=== PATIENT | male | born 1945 | race Caucasian/White ===

== ENCOUNTER → 2019-10-22 | Outpatient (CLI) | payer MEDICARE ==
[2019-10-22 08:56] LABS: Basophils % (A) 0 %; Eosinophils # (A) 0.1 k/uL (0-0.7); Eosinophils % (A) 0 %; HCT 35.4 % (39.0-53.0); HGB 11.5 gm/dL (13.0-17.5); Lymphocytes # (A) 1.8 k/uL (1.0-4.8); Lymphocytes % (A) 14 %; MCHC 32.5 g/dL (31.0-37.0); MCV 95.2 fL (80.0-100.0); Mean Platelet Volume 7.3; Monocytes # (A) 0.5 k/uL (0-1.0); Monocytes % (A) 4 %; Neutrophils # (A) 9.8 k/uL (1.3-7.7); Neutrophils % (A) 80 %; Platelet Count 364 k/uL (150-450); RBC 3.72 m/uL (4.30-5.90); RDW 13.6 % (11.5-15.5); WBC 12.2 k/uL (3.8-10.6)
[2019-10-22 09:02] LABS: Appearance,Urine Cloudy (Clear); Bacteria,Urine Rare /hpf; Bilirubin,Urine Negative (Negative); Blood,Urine Moderate (Negative); Color,Urine Yellow; Glucose,Urine (UA) Negative (Negative); Granular Casts,Urine 35 /lpf (0); Hyaline Casts,Urine 1 /lpf (0-2); Ketones,Urine Negative (Negative); Leukocyte Esterase,Urine Negative (Negative); Mucus,Urine Occasional /hpf; Nitrite,Urine Negative (Negative); Protein,Urine 4+ (Negative); RBC,Urine 5 /hpf (0-5); Specific Gravity,Urine 1.026 (1.001-1.035); Squamous Epithelial Cell,Urine 1 /hpf (0-4); Urobilinogen,Urine <2.0 mg/dL (<2.0); WBC,Urine 5 /hpf (0-5)
[2019-10-22 17:24] LABS: African American GFR (CKD) 56.2 (60.0-200.0); Albumin 2.7 g/dL (3.80-4.90); Albumin/Globulin Ratio 1.69 (1.60-3.17); Anion Gap 4.1 mmol/L (4.00-12.00); BUN/Creat Ratio 39.29 Ratio (12.00-20.00); Carbon Dioxide 30.9 mmol/L (21.6-31.8); Chol/HDL Ratio 2.51; Globulin 1.6 g/dL (1.6-3.3); LDL Cholesterol,Calculated 100.4 mg/dL (0.0-131.0); Non-African American GFR(CKD) 48.5 (60.0-200.0); Phosphorus 4.1 mg/dL (2.4-5.1); Potassium 4.1 mmol/L (3.5-5.5); Total Bilirubin 0.4 mg/dL (0.3-1.2); Total Protein 4.3 g/dL (6.2-8.2); VLDL Calculation 21.6 mg/dL (5.00-40.00)
[2019-10-22 19:19] LABS: Creatinine,Urine Random 186.8 mg/dL
== END | disposition home or self-care (01) ==
LOC: LABWHC1 08:14
PROVIDERS: ATTEND Internal Medicine Nephrology
DX: N04.9 Nephrotic syndrome with unspecified morphologic changes (principal); N18.2 Chronic kidney disease, stage 2 (mild)
CPT/HCPCS: 36415; 80053; 80061; 81001; 82306; 82570; 83970; 84100; 84156; 85025

== ENCOUNTER → 2019-11-10 | Outpatient (CLI) | payer MEDICARE ==
[2019-11-10 17:08] LABS: African American GFR (CKD) 32.5 (60.0-200.0); Anion Gap 7.3 mmol/L (4.00-12.00); Calcium 7.2 mg/dL (8.7-10.3); Carbon Dioxide 28.7 mmol/L (21.6-31.8); Non-African American GFR(CKD) 28.1 (60.0-200.0); Potassium 4.5 mmol/L (3.5-5.5)
== END | disposition home or self-care (01) ==
LOC: LABWHC1 09:01
PROVIDERS: ATTEND Nurse Practitioner Adult Health
DX: N05.1 Unspecified nephritic syndrome with focal and segmental glomerular lesions (principal)
CPT/HCPCS: 36415; 80048

== ENCOUNTER → 2020-01-11 | Outpatient (CLI) | payer MEDICARE ==
[2020-01-11 10:31] LABS: HCT 42.9 % (39.0-53.0); HGB 13.5 gm/dL (13.0-17.5); Hypochromasia Slight; MCH 30.3 pg (25.0-35.0); MCHC 31.6 g/dL (31.0-37.0); Platelet Count 401 k/uL (150-450); RBC 4.47 m/uL (4.30-5.90); WBC 19.4 k/uL (3.8-10.6)
[2020-01-11 11:13] LABS: Appearance,Urine Clear (Clear); Bilirubin,Urine Negative (Negative); Blood,Urine Negative (Negative); Color,Urine Yellow; Glucose,Urine (UA) Negative (Negative); Hyaline Casts,Urine 1 /lpf (0-2); Ketones,Urine Negative (Negative); Leukocyte Esterase,Urine Negative (Negative); Mucus,Urine Rare /hpf; Nitrite,Urine Negative (Negative); Protein,Urine 1+ (Negative); Specific Gravity,Urine 1.023 (1.001-1.035); WBC,Urine 1 /hpf (0-5)
[2020-01-11 11:30] LABS: Protein/Creatinine Ratio,Urine 0.48
[2020-01-11 16:17] LABS: African American GFR (CKD) 75.2 (60.0-200.0); Albumin 3.9 g/dL (3.80-4.90); Albumin/Globulin Ratio 1.77 (1.60-3.17); Anion Gap 7.4 mmol/L (4.00-12.00); BUN/Creat Ratio 16.36 Ratio (12.00-20.00); Calcium 9.6 mg/dL (8.7-10.3); Carbon Dioxide 31.6 mmol/L (21.6-31.8); Globulin 2.2 g/dL (1.6-3.3); Non-African American GFR(CKD) 64.9 (60.0-200.0); Potassium 4.6 mmol/L (3.5-5.5); Total Bilirubin 0.3 mg/dL (0.3-1.2); Total Protein 6.1 g/dL (6.2-8.2)
== END | disposition home or self-care (01) ==
LOC: LABWHC1 09:28
PROVIDERS: ATTEND Internal Medicine Nephrology
DX: I12.9 Hypertensive chronic kidney disease with stage 1 through stage 4 chronic kidney disease, or unspecified chronic kidney disease (principal); E55.9 Vitamin D deficiency, unspecified; N18.2 Chronic kidney disease, stage 2 (mild)
CPT/HCPCS: 36415; 80053; 81001; 82570; 83970; 84156; 85027

== ENCOUNTER → 2020-03-05 | Outpatient (CLI) | payer MEDICARE ==
[2020-03-05 10:27] LABS: Appearance,Urine Clear (Clear); Bilirubin,Urine Negative (Negative); Blood,Urine Negative (Negative); Color,Urine Yellow; Glucose,Urine (UA) Negative (Negative); Ketones,Urine Negative (Negative); Leukocyte Esterase,Urine Negative (Negative); Nitrite,Urine Negative (Negative); PH, Urine 6.5 (5.0-8.0); Protein,Urine Trace (Negative); Specific Gravity,Urine 1.014 (1.001-1.035); Urobilinogen,Urine <2.0 mg/dL (<2.0)
[2020-03-05 16:31] LABS: African American GFR (CKD) 67.7 (60.0-200.0); Albumin 3.6 g/dL (3.80-4.90); Albumin/Globulin Ratio 1.71 (1.60-3.17); Anion Gap 9.2 mmol/L (4.00-12.00); BUN/Creat Ratio 17.5 Ratio (12.00-20.00); Carbon Dioxide 26.8 mmol/L (21.6-31.8); Chol/HDL Ratio 2.42; Globulin 2.1 g/dL (1.6-3.3); LDL Cholesterol,Calculated 70.2 mg/dL (0.0-131.0); Non-African American GFR(CKD) 58.4 (60.0-200.0); Potassium 4.1 mmol/L (3.5-5.5); Total Bilirubin 0.3 mg/dL (0.2-1.2); Total Protein 5.7 g/dL (6.2-8.2); VLDL Calculation 34.8 mg/dL (5.00-40.00)
[2020-03-05 17:36] LABS: Total Protein,Urine Random 21.9 mg/dL (0.0-13.5)
== END | disposition home or self-care (01) ==
LOC: LABWHC1 09:25
PROVIDERS: ATTEND Internal Medicine Nephrology
DX: N04.9 Nephrotic syndrome with unspecified morphologic changes (principal)
CPT/HCPCS: 36415; 80053; 80061; 81003; 82570; 83970; 84156

== ENCOUNTER → 2020-04-11 | Outpatient (CLI) | payer MEDICARE ==
[2020-04-11 10:40] LABS: Appearance,Urine Clear (Clear); Bacteria,Urine Rare /hpf; Bilirubin,Urine Negative (Negative); Blood,Urine Negative (Negative); Calcium Oxalate Crystals,Urine Occasional /hpf; Color,Urine Yellow; Glucose,Urine (UA) Negative (Negative); Ketones,Urine Negative (Negative); Leukocyte Esterase,Urine Negative (Negative); Mucus,Urine Occasional /hpf; Nitrite,Urine Negative (Negative); Protein,Urine 1+ (Negative); RBC,Urine 8 /hpf (0-5); Specific Gravity,Urine 1.021 (1.001-1.035); Squamous Epithelial Cell,Urine <1 /hpf (0-4); Urobilinogen,Urine <2.0 mg/dL (<2.0); WBC,Urine 1 /hpf (0-5)
[2020-04-11 10:50] LABS: Protein/Creatinine Ratio,Urine 0.217
[2020-04-11 16:31] LABS: African American GFR (CKD) 83.8 (60.0-200.0); Albumin 3.6 g/dL (3.80-4.90); Albumin/Globulin Ratio 1.8 (1.60-3.17); Calcium 9.1 mg/dL (8.7-10.3); Chol/HDL Ratio 2.53; LDL Cholesterol,Calculated 75.4 mg/dL (0.0-131.0); Non-African American GFR(CKD) 72.3 (60.0-200.0); Potassium 3.7 mmol/L (3.5-5.5); Total Bilirubin 0.5 mg/dL (0.3-1.2); Total Protein 5.6 g/dL (6.2-8.2); VLDL Calculation 19.6 mg/dL (5.00-40.00)
== END | disposition home or self-care (01) ==
LOC: LABWHC1 08:37
PROVIDERS: ATTEND Internal Medicine Nephrology
DX: N04.9 Nephrotic syndrome with unspecified morphologic changes (principal); N05.1 Unspecified nephritic syndrome with focal and segmental glomerular lesions
CPT/HCPCS: 36415; 80053; 80061; 81001; 82570; 83970; 84156

== ENCOUNTER → 2020-06-29 | Outpatient (CLI) | payer MEDICARE ==
[2020-06-29 10:57] LABS: Appearance,Urine Clear (Clear); Bilirubin,Urine Negative (Negative); Blood,Urine Negative (Negative); Color,Urine Yellow; Glucose,Urine (UA) Negative (Negative); Ketones,Urine Negative (Negative); Leukocyte Esterase,Urine Negative (Negative); Nitrite,Urine Negative (Negative); PH, Urine 6.5 (5.0-8.0); Protein,Urine Trace (Negative); Specific Gravity,Urine 1.021 (1.001-1.035); Urobilinogen,Urine <2.0 mg/dL (<2.0)
[2020-06-29 11:06] LABS: Protein/Creatinine Ratio,Urine 0.074
[2020-06-29 17:30] LABS: African American GFR (CKD) 74.7 (60.0-200.0); Albumin 4.1 g/dL (3.80-4.90); Albumin/Globulin Ratio 1.95 (1.60-3.17); Anion Gap 9.1 mmol/L (4.00-12.00); BUN/Creat Ratio 19.09 Ratio (12.00-20.00); Calcium 9.5 mg/dL (8.7-10.3); Carbon Dioxide 25.9 mmol/L (21.6-31.8); Chol/HDL Ratio 2.62; Globulin 2.1 g/dL (1.6-3.3); LDL Cholesterol,Calculated 73.8 mg/dL (0.0-131.0); Non-African American GFR(CKD) 64.4 (60.0-200.0); Potassium 4.3 mmol/L (3.5-5.5); Total Bilirubin 0.5 mg/dL (0.3-1.2); Total Protein 6.2 g/dL (6.2-8.2); VLDL Calculation 28.2 mg/dL (5.00-40.00)
== END | disposition home or self-care (01) ==
LOC: LABWHC1 09:51
PROVIDERS: ATTEND Internal Medicine Nephrology
DX: N04.9 Nephrotic syndrome with unspecified morphologic changes (principal); N05.1 Unspecified nephritic syndrome with focal and segmental glomerular lesions
CPT/HCPCS: 36415; 80053; 80061; 81003; 82570; 83970; 84156

== ENCOUNTER → 2020-08-01 | Outpatient (CLI) | payer MEDICARE ==
--- NOTE | 2020-08-01 13:00 | CT ---
EXAMINATION TYPE: CT angio abd aorta w/Runoff DATE OF EXAM: 08/01/2020 COMPARISON: HISTORY: Aortic stenosis CT DLP: 957.2 mGycm EXAMINATION TYPE: CT angio abd aorta w/Runoff DATE OF EXAM: 08/01/2020 COMPARISON: None HISTORY: Aortic stenosis CT DLP: 957.2 mGycm CONTRAST: CTA thoracic and abdominal aorta with 3-D reconstruction is performed and without and with IV Contras t, patient injected with 125 ml mL of Isovue 370. Contrast CTA of the abdominal aorta with runoff of the lower extremity arterial system was performed from the lung bases through the ankles and feet. 3-D reconstruction imaging obtained at a separate wo rkstation. ABDOMINAL AORTA: Diffuse atheromatous change of the abdominal aorta with ectasia noted however there is no evidence for aneurysm. Mild mural thrombus. Iliac vessels: Common iliac arteries are patent bilaterally. Diffuse calcific plaque noted bilaterall y without evidence for hemodynamically significant stenosis. Aneurysm of the distal component right c ommon iliac artery measuring 3 cm AP dimension. The left common iliac artery measures up to 2.1 cm. I nternal and external iliac branches are patent. Femoral arteries: Calcific atheromatous plaque seen scattered throughout bilaterally. There is no lisset dence for hemodynamically significant stenosis or stenosis greater than 50%. Ectasia of the distal pr ofunda femoris measuring 9 mm. Popliteal arteries: Popliteal arteries are patent bilaterally with only mild plaque formation noted. Below the knee arteries: Trifurcation is patent bilaterally. Calcific disease noted bilaterally. Righ t anterior tibial artery is noted to the ankle while the left anterior tibial artery is noted up to t he mid calf. There is limited visualization of the bilateral peroneal and posterior tibial arteries. Limited runoff of the ankle vessels. LIVER/GB- No significant abnormality is seen. PANCREAS- No significant abnormality is seen. SPLEEN- No significant abnormality is seen. ADRENALS- No significant abnormality is seen. KIDNEYS/BLADDER- No significant abnormality is seen. Large renal cyst right kidney. BOWEL- No Significant abnormality GENITAL ORGANS: No gross abnormality seen. LYMPH NODES- No greater than 1cm abdominal or pelvic lymph nodes are appreciated. OSSEOUS STRUCTURES- No significant abnormality is seen. OTHER- No significant abnormality is seen. IMPRESSION- 1. 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 2. Calcific atheromatous change throughout without hemodynamically significant stenosis of the common iliac arteries, external and internal iliac arteries, femoral arteries or popliteal arteries. There is limited visualization of the peroneal and posterior tibial arteries bilaterally left greater than right as well as of the anterior tibial arteries.
== END | disposition home or self-care (01) ==
LOC: RADCTMAIN 10:31
PROVIDERS: ATTEND Internal Medicine Interventional Cardiology
DX: I72.3 Aneurysm of iliac artery (principal); Q25.1 Coarctation of aorta; I70.0 Atherosclerosis of aorta; I77.89 Other specified disorders of arteries and arterioles; I70.8 Atherosclerosis of other arteries; I70.203 Unspecified atherosclerosis of native arteries of extremities, bilateral legs
CPT/HCPCS: 82565; 84520; 75635; 36415; Q9967

== ENCOUNTER → 2020-08-15 | Outpatient (CLI) | payer MEDICARE ==
[2020-08-15 09:31] LABS: HCT 43.7 % (39.0-53.0); HGB 14.1 gm/dL (13.0-17.5); MCH 31.3 pg (25.0-35.0); MCHC 32.3 g/dL (31.0-37.0); MCV 96.7 fL (80.0-100.0); Mean Platelet Volume 7.1; Platelet Count 279 k/uL (150-450); RBC 4.52 m/uL (4.30-5.90); WBC 10.1 k/uL (3.8-10.6)
[2020-08-15 09:37] LABS: Potassium 4.4 mmol/L (3.5-5.1)
== END | disposition home or self-care (01) ==
LOC: LABPAT 08:49
PROVIDERS: ATTEND Internal Medicine Interventional Cardiology
DX: Z01.818 Encounter for other preprocedural examination (principal); R06.02 Shortness of breath
CPT/HCPCS: 80051; 82565; 84520; 85027

== ENCOUNTER 2020-08-23 09:13 | Day surgery (SDC) | payer MEDICARE ==
[2020-08-22 12:01] VITALS: BMI 24.3
[~2020-08-23 09:13] MED LIST: ALPRAZolam 0.25 MG TAB PO PRN; ALPRAZolam 0.5 MG TAB PO PRN; ASPIRIN 325 MG TAB PO STA; NITROGLYCERIN SL TABS 0.4 MG TAB SUBLINGUAL PRN; SODIUM CHLORIDE 0.9% 1,000 ML in EMPTY BAG 1 BAG IV ONE
[2020-08-23] MEDS ORDERED: SODIUM CHLORIDE 0.9% 1,000 ML IV ONE (09:55)
[2020-08-23 09:57] VITALS: RESP 16; TEMP 97.6
[2020-08-23] MEDS ORDERED: VERAPAMIL 2.5 MG/ML 2 ML AMP ONE (10:43)
[2020-08-23] MEDS ORDERED: LIDOCAINE 1% INJ 10MG/ML (20 ML MDV) ONE (10:44)
[2020-08-23] MEDS ORDERED: HEPARIN SODIUM 1,000 UN/ML (10ML VL) ONE (11:04)
[2020-08-23] MEDS: MIDAZOLAM 2 MG/2 ML VIAL IV ONE ×2 (11:15→11:18)
[2020-08-23] MEDS ORDERED: LIDOCAINE 1% INJ 10MG/ML (20 ML MDV) SQ ONE (11:18)
[2020-08-23] MEDS: VERAPAMIL SYRINGE (5 MG/10 ML) INTRAARTER ONE ×2 (11:22→11:35)
[2020-08-23] MEDS ORDERED: IOPAMIDOL-370 100ML BTL INJ ONE (11:36)
[2020-08-23] MEDS ORDERED: SODIUM CHLORIDE 0.9% 1,000 ML IV SCH (12:00)
--- NOTE | 2020-08-23 14:14 | CC ---
CARDIAC CATHETERIZATION REPORT DATE OF SERVICE: 08/23/2020 PROCEDURE: Left heart catheterization and coronary angiography. PERFORMED BY: Dr. Brock Coleman. Moderate conscious sedation time was 24 minutes. Patient was administered Versed. Oxygen saturation, hemodynamics and EKG were monitored closely. CLINICAL INFORMATION: Mr. Anthony Samayoa is a 75-year-old gentleman with a history of hypertension, hyperlipidemia, peripheral arterial disease, smoking and COPD. Because of an abnormal stress test with inferior wall reversible defect. He was advised cardiac catheterization after due discussion regarding risks, benefits, and options. He also has a peripheral artery disease with iliac aneurysm as well. PROCEDURE NOTE: Under local anesthesia and strict aseptic precautions, a 6-Uzbek introducer was placed in the right radial artery. Using a JL3.5 and JR4 catheters, I performed coronary angiography and using the same right catheter checked LV pressures but did not perform LV gram. The sheath was taken out and TR band applied as per protocol. Patient tolerated the procedure well without complications. CARDIAC CATHETERIZATION FINDINGS: Left ventricular end-diastolic pressure was about 9-10 mmHg without any gradient across the aortic valve. CORONARY ANGIOGRAPHY FINDINGS: RIGHT CORONARY ARTERY: Dominant vessel, bifurcates very early and gives off a PLV branch that bifurcates in the proximal 1/3 of the vessel and then the vessel continues distally and gives off a PDA branch. The entire vessel has mild diffuse disease throughout, especially the distal branches have diffuse disease but no significant critical focal stenosis is noted. Dominant RCA with a high bifurcation. No significant disease but diffuse narrowing of both branches are noted. LEFT MAIN CORONARY ARTERY: This is a long vessel, has moderate calcification. The distal left main has stenosis of about 35% and it bifurcates into LAD and circumflex. The plaque is best seen in the BIRD caudal projection and in some views it is between 35% and 40% but not surgical. It bifurcates into LAD and circumflex. LEFT ANTERIOR DESCENDING CORONARY ARTERY: Good caliber vessel, extends along the anterior wall proximally, has about a 40% narrowing and then it gives off 2 diagonal branches and runs all the way to the apex. The entire vessel has minor diffuse irregularities of 35%-40%, but proximal 40% stenosis is best seen in the BIRD caudal projection. There is moderate calcification in the proximal 1/3 of the LAD. This LAD branches in terms of septal and diagonal branches have minor diffuse irregularities. LEFT POSTERIOR CIRCUMFLEX CORONARY ARTERY: This is a good caliber vessel, gives off a high obtuse marginal that is large, runs laterally, bifurcates into 2 branches and then circumflex continues in the AV groove has minor irregularities. No significant disease in the nondominant circumflex. FINAL IMPRESSION: This patient has normal filling pressures. No gradient across the aortic valve. He has a right dominant system with diffuse disease in branches in the distal branch of RCA. Left main has a 35% to 40% narrowing with a 40% mid/proximal LAD disease and no significant disease in the circumflex system. Normal filling pressures. No gradient across the aortic valve. RECOMMENDATION: For now, I am recommending medical therapy with the understanding that the left main lesion should be a should be watched aggressively. Stress test did not reveal ischemia in the LAD distribution. I will recommend aggressive lipid-lowering therapy, smoking cessation and optimize medical therapy. He also has an iliac aneurysm that will be evaluated by Dr. Reddy. Discussed my thoughts in detail with the patient as well as his . MMERMIAS / SIMEONN: [id number] /
[2020-08-23 17:34] VITALS: BP 148/82; PULSE 66
== END 2020-08-23 17:34 | disposition home or self-care (01) ==
LOC: CATHCVL 09:13
PROVIDERS: ATTEND Internal Medicine Interventional Cardiology
DX: I25.110 Atherosclerotic heart disease of native coronary artery with unstable angina pectoris (principal); I25.84 Coronary atherosclerosis due to calcified coronary lesion; I10 Essential (primary) hypertension; E78.5 Hyperlipidemia, unspecified; I49.5 Sick sinus syndrome; I12.9 Hypertensive chronic kidney disease with stage 1 through stage 4 chronic kidney disease, or unspecified chronic kidney disease; I72.3 Aneurysm of iliac artery; I70.209 Unspecified atherosclerosis of native arteries of extremities, unspecified extremity; Z82.49 Family history of ischemic heart disease and other diseases of the circulatory system; F17.290 Nicotine dependence, other tobacco product, uncomplicated; E78.00 Pure hypercholesterolemia, unspecified; J44.9 Chronic obstructive pulmonary disease, unspecified; N18.30 Chronic kidney disease, stage 3 unspecified; Z79.82 Long term (current) use of aspirin; Z79.52 Long term (current) use of systemic steroids; Z79.899 Other long term (current) drug therapy
CPT/HCPCS: 93458; C1769; C1894; J2250; J2001; J1644; Q9967

== ENCOUNTER → 2020-09-04 | Outpatient (CLI) | payer MEDICARE ==
[2020-09-04 11:27] LABS: Creatinine,Urine Random 56.7 mg/dL; Protein/Creatinine Ratio,Urine 0.194
[2020-09-04 14:53] LABS: African American GFR (CKD) 74.7 (60.0-200.0); Albumin 4.3 g/dL (3.80-4.90); Albumin/Globulin Ratio 1.95 (1.60-3.17); Anion Gap 5.4 mmol/L (4.00-12.00); BUN/Creat Ratio 15.45 Ratio (12.00-20.00); Calcium 9.7 mg/dL (8.7-10.3); Carbon Dioxide 26.6 mmol/L (21.6-31.8); Globulin 2.2 g/dL (1.6-3.3); Non-African American GFR(CKD) 64.4 (60.0-200.0); Potassium 4.9 mmol/L (3.5-5.5); Total Bilirubin 0.4 mg/dL (0.3-1.2); Total Protein 6.5 g/dL (6.2-8.2)
[2020-09-04 15:01] LABS: Prostate Specific Antigen 1.9 ng/mL (0.0-6.5)
== END | disposition home or self-care (01) ==
LOC: LABWHC1 09:05
PROVIDERS: ATTEND Internal Medicine Nephrology
DX: N05.1 Unspecified nephritic syndrome with focal and segmental glomerular lesions (principal); N40.0 Benign prostatic hyperplasia without lower urinary tract symptoms
CPT/HCPCS: 36415; 80053; 82570; 84153; 84156

== ENCOUNTER → 2020-10-24 | Outpatient (CLI) | payer MEDICARE ==
[2020-10-24 11:26] LABS: Creatinine,Urine Random 89.1 mg/dL; Protein/Creatinine Ratio,Urine 0.112
[2020-10-24 16:45] LABS: African American GFR (CKD) 67.2 (60.0-200.0); Albumin 4.1 g/dL (3.80-4.90); Albumin/Globulin Ratio 1.95 (1.60-3.17); Anion Gap 6.7 mmol/L (4.00-12.00); BUN/Creat Ratio 12.5 Ratio (12.00-20.00); Calcium 9.4 mg/dL (8.7-10.3); Carbon Dioxide 25.3 mmol/L (21.6-31.8); Globulin 2.1 g/dL (1.6-3.3); Potassium 4.6 mmol/L (3.5-5.5); Total Bilirubin 0.4 mg/dL (0.2-1.2); Total Protein 6.2 g/dL (6.2-8.2)
== END | disposition home or self-care (01) ==
LOC: LABWHC1 09:59
PROVIDERS: ATTEND Internal Medicine Nephrology
DX: N05.1 Unspecified nephritic syndrome with focal and segmental glomerular lesions (principal)
CPT/HCPCS: 36415; 80053; 82570; 84156

== ENCOUNTER → 2020-11-27 | Outpatient (CLI) | payer MEDICARE ==
[2020-11-27 11:35] LABS: Appearance,Urine Clear (Clear); Bilirubin,Urine Negative (Negative); Blood,Urine Negative (Negative); Color,Urine Yellow; Glucose,Urine (UA) Negative (Negative); Ketones,Urine Negative (Negative); Leukocyte Esterase,Urine Negative (Negative); Nitrite,Urine Negative (Negative); PH, Urine 5.5 (5.0-8.0); Protein,Urine Negative (Negative); Urobilinogen,Urine <2.0 mg/dL (<2.0)
[2020-11-27 11:50] LABS: Protein/Creatinine Ratio,Urine 0.061
[2020-11-27 15:45] LABS: African American GFR (CKD) 67.2 (60.0-200.0); Albumin 4.4 g/dL (3.80-4.90); Albumin/Globulin Ratio 2.1 (1.60-3.17); Anion Gap 2.7 mmol/L (4.00-12.00); BUN/Creat Ratio 15.83 Ratio (12.00-20.00); Calcium 9.4 mg/dL (8.7-10.3); Carbon Dioxide 28.3 mmol/L (21.6-31.8); Globulin 2.1 g/dL (1.6-3.3); Potassium 5.2 mmol/L (3.5-5.5); Total Bilirubin 0.3 mg/dL (0.3-1.2); Total Protein 6.5 g/dL (6.2-8.2)
== END | disposition home or self-care (01) ==
LOC: LABWHC1 09:41
PROVIDERS: ATTEND Internal Medicine Nephrology
DX: N04.9 Nephrotic syndrome with unspecified morphologic changes (principal)
CPT/HCPCS: 36415; 80053; 81003; 82570; 84156

== ENCOUNTER → 2021-01-14 | Outpatient (CLI) | payer MEDICARE ==
[2021-01-14 10:26] LABS: Appearance,Urine Clear (Clear); Bilirubin,Urine Negative (Negative); Blood,Urine Negative (Negative); Color,Urine Yellow; Glucose,Urine (UA) Negative (Negative); Ketones,Urine Negative (Negative); Leukocyte Esterase,Urine Negative (Negative); Nitrite,Urine Negative (Negative); PH, Urine 5.5 (5.0-8.0); Protein,Urine Negative (Negative); Specific Gravity,Urine 1.021 (1.001-1.035); Urobilinogen,Urine <2.0 mg/dL (<2.0)
[2021-01-14 10:42] LABS: Creatinine,Urine Random 196.4 mg/dL; Protein/Creatinine Ratio,Urine 0.036
[2021-01-14 16:29] LABS: Basophils # (A) 0.07 X 10*3/uL (0.00-0.10); Basophils % (A) 0.8 %; Eosinophils # (A) 0.42 X 10*3/uL (0.04-0.35); Eosinophils % (A) 4.7 %; HGB 13.3 g/dL (13.0-17.0); Lymphocytes # (A) 2.46 X 10*3/uL (0.90-5.00); Lymphocytes % (A) 27.8 %; MCH 29.8 pg (27.0-32.0); MCHC 32.4 g/dL (32.0-37.0); MCV 91.7 fL (80.0-97.0); Mean Platelet Volume 10.2 fL (9.5-12.2); Monocytes # (A) 0.66 X 10*3/uL (0.20-1.00); Monocytes % (A) 7.5 %; Neutrophils % (A) 58.7 %; Platelet Count 318 X 10*3/uL (140-440); RBC 4.47 X 10*6/uL (4.40-5.60); RDW 14.2 % (11.5-14.5); WBC 8.85 X 10*3/uL (4.50-10.00)
[2021-01-14 17:38] LABS: ALT <8 U/L (10-49); AST 16 U/L (14-35); African American GFR (CKD) 74.7 (60.0-200.0); Albumin/Globulin Ratio 1.58 (1.60-3.17); Alkaline Phosphatase 103 U/L (41-126); BUN/Creat Ratio 14.55 Ratio (12.00-20.00); Chloride 105 mmol/L (96-109); Chol/HDL Ratio 3.09; Cholesterol 99 mg/dL (0-200); Globulin 2.6 g/dL (1.6-3.3); Glucose 99 mg/dL (70-110); LDL Cholesterol,Calculated 43.4 mg/dL (0.0-131.0); Non-African American GFR(CKD) 64.4 (60.0-200.0); Potassium 4.8 mmol/L (3.5-5.5); Prostate Specific Antigen 1.2 ng/mL (0.0-6.5); Sodium 136 mmol/L (135-145); Total Bilirubin 0.4 mg/dL (0.3-1.2); Total Protein 6.7 g/dL (6.2-8.2)
== END | disposition home or self-care (01) ==
LOC: LABWHC1 09:16
PROVIDERS: ATTEND Internal Medicine Nephrology
DX: N40.0 Benign prostatic hyperplasia without lower urinary tract symptoms (principal); E78.5 Hyperlipidemia, unspecified; N18.2 Chronic kidney disease, stage 2 (mild)
CPT/HCPCS: 36415; 80053; 80061; 81003; 82570; 84153; 84156; 85025

== ENCOUNTER → 2021-02-27 | Outpatient (CLI) | payer MEDICARE ==
[2021-02-27 10:00] LABS: Creatinine,Urine Random 195.1 mg/dL; Protein/Creatinine Ratio,Urine 0.036
[2021-02-28 04:02] LABS: African American GFR (CKD) 74.7 (60.0-200.0); Anion Gap 7.3 mmol/L (4.00-12.00); BUN/Creat Ratio 16.36 Ratio (12.00-20.00); Calcium 9.2 mg/dL (8.7-10.3); Carbon Dioxide 22.7 mmol/L (21.6-31.8); Non-African American GFR(CKD) 64.4 (60.0-200.0); Potassium 4.8 mmol/L (3.5-5.5)
== END | disposition home or self-care (01) ==
LOC: LABWHC1 08:55
PROVIDERS: ATTEND Nurse Practitioner Adult Health
DX: N18.2 Chronic kidney disease, stage 2 (mild) (principal)
CPT/HCPCS: 36415; 80048; 82570; 84156

== ENCOUNTER → 2021-05-08 | Outpatient (CLI) | payer MEDICARE ==
[2021-05-08 12:31] LABS: Creatinine,Urine Random 192.3 mg/dL; Protein/Creatinine Ratio,Urine 0.036
[2021-05-09 03:54] LABS: African American GFR (CKD) 66.7 (60.0-200.0); Albumin/Globulin Ratio 1.48 (1.60-3.17); Anion Gap 10.5 mmol/L (4.00-12.00); Calcium 9.4 mg/dL (8.7-10.3); Carbon Dioxide 23.5 mmol/L (21.6-31.8); Globulin 2.7 g/dL (1.6-3.3); Non-African American GFR(CKD) 57.6 (60.0-200.0); Potassium 5.3 mmol/L (3.5-5.5); Total Bilirubin 0.4 mg/dL (0.3-1.2); Total Protein 6.7 g/dL (6.2-8.2)
== END | disposition home or self-care (01) ==
LOC: LABWHC1 08:59
PROVIDERS: ATTEND Nurse Practitioner Adult Health
DX: N05.1 Unspecified nephritic syndrome with focal and segmental glomerular lesions (principal)
CPT/HCPCS: 36415; 80053; 82570; 84156

== ENCOUNTER → 2021-07-12 | Outpatient (CLI) | payer MEDICARE ==
[2021-07-12 10:49] LABS: Creatinine,Urine Random 114.4 mg/dL
[2021-07-12 19:48] LABS: African American GFR (CKD) 74.1 (60.0-200.0); Albumin 4.1 g/dL (3.80-4.90); Albumin/Globulin Ratio 1.64 (1.60-3.17); Anion Gap 6.1 mmol/L (4.00-12.00); BUN/Creat Ratio 16.36 Ratio (12.00-20.00); Calcium 9.3 mg/dL (8.7-10.3); Carbon Dioxide 22.9 mmol/L (21.6-31.8); Globulin 2.5 g/dL (1.6-3.3); Potassium 4.7 mmol/L (3.5-5.5); Total Bilirubin 0.4 mg/dL (0.2-1.2); Total Protein 6.6 g/dL (6.2-8.2)
== END | disposition home or self-care (01) ==
LOC: LABWHC1 09:02
PROVIDERS: ATTEND Internal Medicine Nephrology
DX: I12.9 Hypertensive chronic kidney disease with stage 1 through stage 4 chronic kidney disease, or unspecified chronic kidney disease (principal); N18.9 Chronic kidney disease, unspecified
CPT/HCPCS: 36415; 80053; 82570; 84156

== ENCOUNTER → 2022-04-08 | Outpatient (CLI) | payer MEDICARE ==
[2022-04-08 10:24] LABS: Creatinine,Urine Random 174.7 mg/dL
[2022-04-08 14:28] LABS: Appearance,Urine Clear (Clear); Bilirubin,Urine Negative (Negative); Blood,Urine Negative (Negative); Color,Urine Yellow (Yellow); Ketones,Urine Negative (Negative); Nitrite,Urine Negative (Negative); PH, Urine 5.5 (5.0-8.0); Specific Gravity,Urine 1.026 (1.001-1.030)
[2022-04-08 15:07] LABS: ALT 7 U/L (10-49); AST 17 U/L (14-35); African American GFR (CKD) 83.2 (60.0-200.0); Albumin 4.1 g/dL (3.8-4.9); Albumin/Globulin Ratio 1.41 (1.60-3.17); Alkaline Phosphatase 101 U/L (41-126); Blood Urea Nitrogen 18.3 mg/dL (9.0-27.0); Calcium 9.1 mg/dL (8.7-10.3); Carbon Dioxide 21.6 mmol/L (20.0-27.5); Chloride 107 mmol/L (96-109); Chol/HDL Ratio 2.57 Ratio; Globulin 2.9 g/dL (1.6-3.3); Glucose 102 mg/dL (70-110); LDL Cholesterol,Calculated 54.6 mg/dL (0.0-131.0); Non-African American GFR(CKD) 71.8 (60.0-200.0); Potassium 4.4 mmol/L (3.5-5.5); Sodium 139 mmol/L (135-145)
== END | disposition home or self-care (01) ==
LOC: LABWHC1 08:43
PROVIDERS: ATTEND Internal Medicine Nephrology
DX: I12.9 Hypertensive chronic kidney disease with stage 1 through stage 4 chronic kidney disease, or unspecified chronic kidney disease (principal); E78.5 Hyperlipidemia, unspecified; N40.0 Benign prostatic hyperplasia without lower urinary tract symptoms; N18.9 Chronic kidney disease, unspecified
CPT/HCPCS: 36415; 80053; 80061; 81003; 82570; 84153; 84156

== ENCOUNTER → 2022-08-05 | Outpatient (CLI) | payer MEDICARE ==
--- NOTE | 2022-08-05 15:35 | CT ---
CT angiogram of the abdominal aorta with runoff HISTORY: I 71.4, or from vascular occlusive disease Helical acquisition obtained from the level of the descending aorta through the lower extremities bot h pre and post administration of 125 cc Isovue-370 IV. Automated exposure control for dose reduction. Three-dimensional reconstructions were performed on an alternate workstation and reviewed. 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 Similar findings seen on prior exam. Lung bases show atheromatous change, there is no pleural or pericardial effusion. Hiatal hernia is in cidentally noted. Circumaortic left renal vein is present. Prostate is enlarged. Diverticular changes associated with the sigmoid colon. The descending aorta is patent. The superior mesenteric artery, celiac axis shows proximal stenosis, inferior mesenteric artery is patent. Renal arteries are patent. Common iliac arteries show similar a ppearance with ectasia and atheromatous change. Internal and external iliac arteries, common femoral, deep and superficial femoral arteries are patent. Popliteal arteries, trifurcation vessels are paten t. On the right enhancement of the peroneal artery is only seen to the mid calf, enhancement of the a nterior tibial and posterior tibial artery is seen in the foot. On the left, similarly peroneal arter y is not seen to enhance distal to the mid calf. Anterior and posterior tibial arteries are thought t o enhance into the foot. There are extensive atheromatous changes, calcifications in the small vessel s limit evaluation. Large cortical cyst is associated with the right kidney as on prior exam in exophytic location seat cover maker iorly on the right. IMPRESSION: Peripheral vascular occlusive disease is thought to be similar to prior exam. Suspect two -vessel outflow bilaterally although there are limitations the exam.
== END | disposition home or self-care (01) ==
LOC: RADCTMAIN 11:52
PROVIDERS: ATTEND Internal Medicine Interventional Cardiology
DX: I73.9 Peripheral vascular disease, unspecified (principal)
CPT/HCPCS: 82565; 84520; 75635; 36415; Q9967

== ENCOUNTER → 2022-09-24 | Outpatient (CLI) | payer MEDICARE ==
[2022-09-24 17:33] LABS: African American GFR (CKD) 73.6 (60.0-200.0); Albumin 4.3 g/dL (3.8-4.9); Albumin/Globulin Ratio 1.65 (1.60-3.17); Anion Gap 9.7 mmol/L (10.00-18.00); BUN/Creat Ratio 13.82 Ratio (12.00-20.00); Blood Urea Nitrogen 15.2 mg/dL (9.0-27.0); Calcium 9.4 mg/dL (8.7-10.3); Carbon Dioxide 25.3 mmol/L (20.0-27.5); Globulin 2.6 g/dL (1.6-3.3); Non-African American GFR(CKD) 63.5 (60.0-200.0); Potassium 4.7 mmol/L (3.5-5.5); Total Bilirubin 0.3 mg/dL (0.30-1.20); Total Protein 6.9 g/dL (6.2-8.2)
[2022-09-24 18:25] LABS: Basophils # (A) 0.06 X 10*3/uL (0.00-0.10); Basophils % (A) 0.8 %; Eosinophils % (A) 2.5 %; HCT 44.2 % (39.6-50.0); HGB 14.8 g/dL (13.0-17.0); Immature Grans, Automated 0.3 %; Lymphocytes # (A) 2.43 X 10*3/uL (0.90-5.00); Lymphocytes % (A) 30.8 %; MCH 31.6 pg (27.0-32.0); MCHC 33.5 g/dL (32.0-37.0); MCV 94.2 fL (80.0-97.0); Monocytes # (A) 0.62 X 10*3/uL (0.20-1.00); Monocytes % (A) 7.9 %; NRBC Per 100 WBC 0 /100 WBCS (0.0-0.0); Neutrophils # (A) 4.55 X 10*3/uL (1.80-7.70); Neutrophils % (A) 57.7 %; Platelet Count 272 X 10*3/uL (140-440); RBC 4.69 X 10*6/uL (4.40-5.60); RDW 15.1 % (11.5-14.5); WBC 7.88 X 10*3/uL (4.50-10.00)
[2022-09-24 19:51] LABS: Microalbumin Creatinine Ratio <30 mg/g Creat (0-30)
[2022-09-25 09:16] LABS: Creatinine,Urine Random 148.8 mg/dL
== END | disposition home or self-care (01) ==
LOC: LABWHC1 09:09
PROVIDERS: ATTEND Internal Medicine Nephrology
DX: N18.2 Chronic kidney disease, stage 2 (mild) (principal)
CPT/HCPCS: 36415; 80053; 82043; 82570; 84156; 85025

== ENCOUNTER → 2023-01-26 | Outpatient (CLI) | payer MEDICARE ==
[2023-01-26 09:33] LABS: Creatinine,Urine Random 193.1 mg/dL
[2023-01-26 16:25] LABS: African American GFR (CKD) 75.3 (60.0-200.0); Albumin/Globulin Ratio 1.5 (1.60-3.17); Anion Gap 8.8 mmol/L (10.00-18.00); BUN/Creat Ratio 14.07 Ratio (12.00-20.00); Blood Urea Nitrogen 15.2 mg/dL (9.0-27.0); Calcium 8.9 mg/dL (8.7-10.3); Carbon Dioxide 23.8 mmol/L (20.0-27.5); Globulin 2.7 g/dL (1.6-3.3); Non-African American GFR(CKD) 64.9 (60.0-200.0); Potassium 4.7 mmol/L (3.5-5.5); Total Bilirubin 0.4 mg/dL (0.30-1.20); Total Protein 6.6 g/dL (6.2-8.2)
[2023-01-26 16:45] LABS: Basophils # (A) 0.06 X 10*3/uL (0.00-0.10); Basophils % (A) 0.8 %; Eosinophils # (A) 0.18 X 10*3/uL (0.04-0.35); Eosinophils % (A) 2.4 %; HCT 42.9 % (39.6-50.0); HGB 13.9 g/dL (13.0-17.0); Immature Grans, Automated 0.3 %; Lymphocytes # (A) 2.21 X 10*3/uL (0.90-5.00); MCH 30.7 pg (27.0-32.0); MCHC 32.4 g/dL (32.0-37.0); MCV 94.7 fL (80.0-97.0); Mean Platelet Volume 10.4 fL (9.5-12.2); Monocytes # (A) 0.54 X 10*3/uL (0.20-1.00); Monocytes % (A) 7.1 %; NRBC Per 100 WBC 0 /100 WBCS (0.0-0.0); Neutrophils # (A) 4.62 X 10*3/uL (1.80-7.70); Neutrophils % (A) 60.4 %; Platelet Count 264 X 10*3/uL (140-440); RBC 4.53 X 10*6/uL (4.40-5.60); RDW 14.4 % (11.5-14.5); WBC 7.63 X 10*3/uL (4.50-10.00)
== END | disposition home or self-care (01) ==
LOC: LABWHC1 08:29
PROVIDERS: ATTEND Internal Medicine Nephrology
DX: N18.2 Chronic kidney disease, stage 2 (mild) (principal)
CPT/HCPCS: 36415; 80053; 82043; 82570; 84156; 85025

== ENCOUNTER → 2023-07-22 | Outpatient (CLI) | payer MEDICARE ==
[2023-07-22 10:59] LABS: Creatinine,Urine Random 210.8 mg/dL
[2023-07-22 16:10] LABS: Basophils # (A) 0.06 X 10*3/uL (0.00-0.10); Basophils % (A) 0.8 %; Eosinophils # (A) 0.17 X 10*3/uL (0.04-0.35); Eosinophils % (A) 2.3 %; HCT 41.8 % (39.6-50.0); HGB 13.6 d/dL (13.0-17.0); Lymphocytes # (A) 2.12 X 10*3/uL (0.90-5.00); Lymphocytes % (A) 29.1 %; MCH 30.8 pg (27.0-32.0); MCHC 32.5 d/dL (32.0-37.0); MCV 94.8 FL (80.0-97.0); Mean Platelet Volume 10.5 FL (9.5-12.2); Monocytes # (A) 0.55 X 10*3/uL (0.20-1.00); Monocytes % (A) 7.5 %; NRBC Per 100 WBC 0 X 10*3/uL (0.00-0.01); Neutrophils # (A) 4.37 X 10*3/uL (1.80-7.70); Platelet Count 250 X 10*3/uL (140-440); RBC 4.41 X 10*6/uL (4.40-5.60); RDW 14.9 % (11.5-14.5); WBC 7.29 X 10*3/uL (4.50-10.00)
[2023-07-22 16:27] LABS: ALT 14 U/L (10-49); AST 19 U/L (14-35); Albumin 4.1 d/dL (3.8-4.9); Albumin/Globulin Ratio 1.64 Ratio (1.60-3.17); Alkaline Phosphatase 85 U/L (41-126); BUN/Creat Ratio 12.55 Ratio (12.00-20.00); Blood Urea Nitrogen 13.8 mg/dL (9.0-27.0); Calcium 9.1 mg/dL (8.7-10.3); Carbon Dioxide 22.9 mmol/L (21.6-31.8); Chloride 108 mmol/L (96-109); Globulin 2.5 d/dL (1.6-3.3); Glucose 92 mg/dL (70-110); Potassium 4.5 mmol/L (3.5-5.5); Sodium 141 mmol/L (135-145); Total Bilirubin 0.4 mg/dL (0.3-1.2); Total Protein 6.6 d/dL (6.2-8.2)
[2023-07-22 18:30] LABS: Microalbumin Creatinine Ratio <6 mg/g Cr (0-30)
== END | disposition home or self-care (01) ==
LOC: LABWHC1 08:45
PROVIDERS: ATTEND Internal Medicine Nephrology
DX: N18.2 Chronic kidney disease, stage 2 (mild) (principal)
CPT/HCPCS: 36415; 80053; 82043; 82570; 84156; 85025

== ENCOUNTER → 2024-01-20 | Outpatient (CLI) | payer MEDICARE ==
[2024-01-20 14:09] LABS: Creatinine,Urine Random 142.6 mg/dL
[2024-01-20 15:43] LABS: ALT 12 U/L (10-49); AST 15 U/L (14-35); Albumin 4.1 g/dL (3.8-4.9); Albumin/Globulin Ratio 1.46 Ratio (1.60-3.17); Alkaline Phosphatase 94 U/L (41-126); BUN/Creat Ratio 13.11 Ratio (12.00-20.00); Blood Urea Nitrogen 11.8 mg/dL (9.0-27.0); Carbon Dioxide 24.4 mmol/L (21.6-31.8); Chloride 111 mmol/L (96-109); Globulin 2.8 g/dL (1.6-3.3); Glucose 94 mg/dL (70-110); Phosphorus 2.8 mg/dL (2.4-5.1); Potassium 4.6 mmol/L (3.5-5.5); Sodium 144 mmol/L (135-145); Total Bilirubin 0.4 mg/dL (0.3-1.2); Total Protein 6.9 g/dL (6.2-8.2)
[2024-01-20 15:48] LABS: Basophils # (A) 0.05 X 10*3/uL (0.00-0.10); Basophils % (A) 0.6 %; Eosinophils # (A) 0.18 X 10*3/uL (0.04-0.35); Eosinophils % (A) 2.3 %; HCT 42.3 % (39.6-50.0); HGB 13.8 g/dL (13.0-17.0); Lymphocytes # (A) 2.28 X 10*3/uL (0.90-5.00); MCH 30.5 pg (27.0-32.0); MCHC 32.6 g/dL (32.0-37.0); MCV 93.4 FL (80.0-97.0); Mean Platelet Volume 10.2 FL (9.5-12.2); Monocytes # (A) 0.46 X 10*3/uL (0.20-1.00); Monocytes % (A) 5.9 %; NRBC Per 100 WBC 0 X 10*3/uL (0.00-0.01); Neutrophils # (A) 4.87 X 10*3/uL (1.80-7.70); Neutrophils % (A) 61.9 %; Platelet Count 236 X 10*3/uL (140-440); RBC 4.53 X 10*6/uL (4.40-5.60); WBC 7.86 X 10*3/uL (4.50-10.00)
== END | disposition home or self-care (01) ==
LOC: LABWHC1 09:23
PROVIDERS: ATTEND Internal Medicine Nephrology
DX: I12.9 Hypertensive chronic kidney disease with stage 1 through stage 4 chronic kidney disease, or unspecified chronic kidney disease (principal); N18.9 Chronic kidney disease, unspecified
CPT/HCPCS: 36415; 80053; 82570; 83970; 84100; 84156; 85025

== ENCOUNTER → 2024-07-20 | Outpatient (CLI) | payer MEDICARE ==
[2024-07-20 11:01] LABS: Creatinine,Urine Random 122.4 mg/dL
[2024-07-20 16:40] LABS: HCT 39.4 % (39.6-50.0); MCH 30.5 pg (27.0-32.0); MCV 92.5 FL (80.0-97.0); Mean Platelet Volume 9.7 FL (9.5-12.2); NRBC Per 100 WBC 0 X 10*3/uL (0.00-0.01); Platelet Count 258 X 10*3/uL (140-440); RBC 4.26 X 10*6/uL (4.40-5.60); WBC 9.47 X 10*3/uL (4.50-10.00)
[2024-07-20 16:41] LABS: Basophils # (A) 0.06 X 10*3/uL (0.00-0.10); Basophils % (A) 0.6 %; Eosinophils # (A) 0.18 X 10*3/uL (0.04-0.35); Eosinophils % (A) 1.9 %; Lymphocytes # (A) 1.88 X 10*3/uL (0.90-5.00); Lymphocytes % (A) 19.9 %; Monocytes # (A) 0.62 X 10*3/uL (0.20-1.00); Monocytes % (A) 6.5 %; Neutrophils # (A) 6.71 X 10*3/uL (1.80-7.70); Neutrophils % (A) 70.9 %
[2024-07-20 19:00] LABS: ALT 9 U/L (10-49); AST 15 U/L (14-35); Albumin 3.7 g/dL (3.8-4.9); Albumin/Globulin Ratio 1.32 Ratio (1.60-3.17); Alkaline Phosphatase 99 U/L (41-126); BUN/Creat Ratio 14.89 Ratio (12.00-20.00); Blood Urea Nitrogen 13.4 mg/dL (9.0-27.0); Calcium 8.8 mg/dL (8.7-10.3); Chloride 107 mmol/L (96-109); Globulin 2.8 g/dL (1.6-3.3); Glucose 99 mg/dL (70-110); Phosphorus 2.7 mg/dL (2.4-5.1); Potassium 4.3 mmol/L (3.5-5.5); Sodium 140 mmol/L (135-145); Total Bilirubin 0.3 mg/dL (0.3-1.2); Total Protein 6.5 g/dL (6.2-8.2)
== END | disposition home or self-care (01) ==
LOC: LABWHC1 09:49
PROVIDERS: ATTEND Internal Medicine Nephrology
DX: I12.9 Hypertensive chronic kidney disease with stage 1 through stage 4 chronic kidney disease, or unspecified chronic kidney disease (principal)
CPT/HCPCS: 36415; 80053; 82570; 83970; 84100; 84156; 85025

== ENCOUNTER → 2024-11-09 | Outpatient (CLI) | payer MEDICARE ==
[2024-11-09 10:16] LABS: African American GFR (CKD) >90 (>60 ml/min/1.73 sqM); Blood Urea Nitrogen 13 mg/dL (9-20); Non-African American GFR(CKD) 81 (>60 ml/min/1.73 sqM)
--- NOTE | 2024-11-09 11:34 | CT ---
EXAMINATION TYPE: CT angio abdomen pelvis DATE OF EXAM: 11/09/2024 COMPARISON: Prior CTA August 05, 2022 HISTORY: Monitoring aneurysm CT DLP: 761.1 mGycm, Automated Exposure Control for Dose Reduction was Utilized. CONTRAST: CTA scan of the abdomen and pelvis is performed without oral and without and with IV Contrast, patien t injected with 100 mL of Isovue 370. Aneurysm protocol with 3-D reconstructed images created on an [employer] workstation and reviewed. FINDINGS: Vascular: Persistent infrarenal AAA measuring 3.5 x 3.8 cm transversely axial image 44 series 3. No a neurysmal extension into the common iliac arteries. There is additional focal aneurysm of the right c ommon iliac artery measuring 2.3 cm axial image 56 redemonstrated. Is mild/moderate peripheral calcif ied plaque of the infrarenal abdominal aorta with more moderate peripheral calcified plaque in the il iac arteries bilaterally extending into the femoral arteries where moderate to severe calcified plaqu e is seen. Postcontrast images show no linear hypodensity to suggest dissection. Persistent significa nt narrowing of the celiac artery origin sagittal image 85. Near complete occlusion is seen over shor t segment. Patent SMA without significant stenosis. Patent bilateral single renal arteries without si gnificant stenosis. Patent HASMUKH. LUNG BASES: No significant abnormality is appreciated. LIVER/GB: No significant abnormality is appreciated. PANCREAS: No significant abnormality is seen. SPLEEN: No significant abnormality is seen. ADRENALS: No significant abnormality is seen. KIDNEYS: Large thin-walled cyst posteriorly in the right kidney again seen. A few tiny cortical cysts bilaterally are redemonstrated.. BOWEL: Small-sized hiatal hernia is redemonstrated. There is incidental 2.8 cm duodenal diverticulum along the second portion coronal image 60 redemonstrated. Sigmoid colonic diverticulosis. No CT evide nce for acute diverticulitis. PROSTATE/SEMINAL VESICLES: Enlarged prostate consistent with BPH. LYMPH NODES: Mild fat stranding in the left-sided mesentery with prominent but subcentimeter lymph no miguelangel is again seen. This keely mesentery appearance is nonspecific. OSSEOUS STRUCTURES: Multilevel spurring in the thoracic spine is present. Moderate narrowing of both hip joints. OTHER: No significant additional abnormality is seen. IMPRESSION: Infrarenal AAA now measures up to 3.8 cm transversely. Additional focal 2.3 cm aneurysm o f the right common iliac artery noted. 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 [facility], , 11/09/2024 11:32 AM
== END | disposition home or self-care (01) ==
LOC: RADCTMAIN 09:39
PROVIDERS: ATTEND Internal Medicine Interventional Cardiology
DX: I71.43 Infrarenal abdominal aortic aneurysm, without rupture (principal); I72.3 Aneurysm of iliac artery; K57.30 Diverticulosis of large intestine without perforation or abscess without bleeding; K44.9 Diaphragmatic hernia without obstruction or gangrene; N28.1 Cyst of kidney, acquired
CPT/HCPCS: 82565; 84520; 36415; 74174; Q9967

== ENCOUNTER → 2025-01-11 | Outpatient (CLI) | payer MEDICARE ==
[2025-01-11 12:16] LABS: Creatinine,Urine Random 71.3 mg/dL
[2025-01-11 15:33] LABS: ALT 10 U/L (10-49); AST 17 U/L (14-35); Albumin 3.8 g/dL (3.8-4.9); Albumin/Globulin Ratio 1.27 Ratio (1.60-3.17); Alkaline Phosphatase 119 U/L (41-126); BUN/Creat Ratio 15.89 Ratio (12.00-20.00); Blood Urea Nitrogen 14.3 mg/dL (9.0-27.0); Calcium 9.2 mg/dL (8.7-10.3); Chloride 105 mmol/L (96-109); Chol/HDL Ratio 2.35 Ratio; Glucose 91 mg/dL (70-110); LDL Cholesterol,Calculated 43.6 mg/dL (0.0-131.0); Potassium 4.7 mmol/L (3.5-5.5); Prostate Specific Antigen 1.69 ng/mL (0.000-6.500); Sodium 137 mmol/L (135-145); Total Bilirubin 0.3 mg/dL (0.3-1.2); Total Protein 6.8 g/dL (6.2-8.2); VLDL Calculation 13.82 mg/dL (5.00-40.00)
[2025-01-11 16:00] LABS: Basophils # (A) 0.05 X 10*3/uL (0.00-0.10); Basophils % (A) 0.6 %; Eosinophils # (A) 0.14 X 10*3/uL (0.04-0.35); Eosinophils % (A) 1.7 %; HCT 39.9 % (39.6-50.0); HGB 12.9 g/dL (13.0-17.0); Lymphocytes # (A) 2.13 X 10*3/uL (0.90-5.00); Lymphocytes % (A) 26.2 %; MCH 29.8 pg (27.0-32.0); MCHC 32.3 g/dL (32.0-37.0); MCV 92.1 FL (80.0-97.0); Mean Platelet Volume 10.2 FL (9.5-12.2); Monocytes # (A) 0.49 X 10*3/uL (0.20-1.00); NRBC Per 100 WBC 0 X 10*3/uL (0.00-0.01); Neutrophils # (A) 5.29 X 10*3/uL (1.80-7.70); Neutrophils % (A) 65.3 %; Platelet Count 271 X 10*3/uL (140-440); RBC 4.33 X 10*6/uL (4.40-5.60); RDW 14.7 % (11.5-14.5); WBC 8.12 X 10*3/uL (4.50-10.00)
== END | disposition home or self-care (01) ==
LOC: LABWHC1 09:47
PROVIDERS: ATTEND Family Medicine
DX: Z00.00 Encounter for general adult medical examination without abnormal findings (principal); I12.9 Hypertensive chronic kidney disease with stage 1 through stage 4 chronic kidney disease, or unspecified chronic kidney disease; E78.5 Hyperlipidemia, unspecified; N18.9 Chronic kidney disease, unspecified
CPT/HCPCS: 36415; 80053; 80061; 82570; 83036; 83970; 84100; 84153; 84156; 85025